=== PATIENT | female | born 1995 | race Native Hawaiian/Other Pacific Islander ===

== ENCOUNTER 2020-08-10 12:13 | Emergency (ER) | payer MEDICAID ==
[~2020-08-10] VITALS: Ht 167.6 cm; Wt 94.5 kg
[2020-08-10] MEDS ORDERED: BACITRACIN 0.9 GM PACKET OINTMENT TP ONE (13:45)
[2020-08-10] MEDS ORDERED: IBUPROFEN 600 MG TABLET PO ONE (13:45)
[2020-08-10 14:29] VITALS: BP 131/78
== END 2020-08-10 14:36 | disposition home or self-care (01) ==
LOC: EMS 12:13
DX: S50.02XA Contusion of left elbow, initial encounter (principal); F12.90 Cannabis use, unspecified, uncomplicated; V87.8XXA Person injured in other specified noncollision transport accidents involving motor vehicle (traffic), initial encounter; Y93.89 Activity, other specified; Y92.488 Other paved roadways as the place of occurrence of the external cause; Y99.8 Other external cause status
CPT/HCPCS: 99284

== ENCOUNTER 2020-08-31 22:54 | Emergency (ER) | payer MEDICAID ==
[~2020-08-31] VITALS: Ht 160 cm; Wt 93.2 kg
[2020-08-31 23:50] VITALS: BP 148/96
== END 2020-09-01 00:02 | disposition home or self-care (01) ==
LOC: EMS 23:00
DX: S60.052A Contusion of left little finger without damage to nail, initial encounter (principal); F12.90 Cannabis use, unspecified, uncomplicated; W23.0XXA Caught, crushed, jammed, or pinched between moving objects, initial encounter; Y93.89 Activity, other specified; Y92.89 Other specified places as the place of occurrence of the external cause; Y99.8 Other external cause status
CPT/HCPCS: 99283

== ENCOUNTER 2021-06-29 08:35 | Emergency (ER) | payer MEDICAID ==
[~2021-06-29] VITALS: Ht 170.2 cm; Wt 90.9 kg
[2021-06-29 08:39] VITALS: BP 149/94
[2021-06-29] MEDS ORDERED: AMOX TR/POT CLAV 875 MG/125 MG TABLET PO ONE (09:00)
[2021-06-29] MEDS ORDERED: BACITRACIN 0.9 GM PACKET OINTMENT TP ONE (09:00)
[2021-06-29] MEDS ORDERED: HYDROGEN PEROXIDE 118 ML SOLUTION TP ONE (09:00)
[2021-06-29] MEDS ORDERED: HYDROCODONE/ACETAMINOPHEN 5-325 MG TABLET PO ONE (09:15)
[2021-06-29] MEDS ORDERED: IBUP-1554 PO (10:13)
[2021-06-29] MEDS ORDERED: AMOX-429 PO (10:13)
[2021-06-29] MEDS ORDERED: BACI28OI28 TP (10:15)
== END 2021-06-29 10:23 | disposition home or self-care (01) ==
LOC: EMS 08:35
DX: S61.212A Laceration without foreign body of right middle finger without damage to nail, initial encounter (principal); S61.210A Laceration without foreign body of right index finger without damage to nail, initial encounter; F12.90 Cannabis use, unspecified, uncomplicated; Z87.891 Personal history of nicotine dependence; W50.3XXA Accidental bite by another person, initial encounter; Y93.89 Activity, other specified; Y92.89 Other specified places as the place of occurrence of the external cause; Y99.8 Other external cause status
CPT/HCPCS: 99283